=== PATIENT | male | born 1960 | race Caucasian/White ===

== ENCOUNTER 2017-04-14 10:23 | Emergency (ER) | payer BC ==
--- NOTE | ~2017-04-14 | CR173 ---
[facility] A Service of [facility] & [facility] RADIOLOGY TEXT RESULTS PATIENT: MAVERICK LARSON LOCATION: [facility] : 64 UNIT #: [id number] AGE: [address]: Stephani Palacios SEX: M ORDER DR: [id number] [facility] [address] [place], [place] [address] [id number] MR#: [id number] Acc #: [id number] NAME: MAVERICK LARSON : 1960 SEX: M STUDY DATE/TIME: 04/14/2017 11:22 UNIT: [facility] ROOM: STUDY DESCRIPTION: CR Knee 3 Views Rt Attending Physician: Stephani Palacios Pa-C Referring Physician: Self Referral-Refer Use Only Ordering Physician: Ed Peter Sarabia M.D. Primary Care Physician: Macho White M.D. MEDICAL IMAGING REPORT This report is preliminary unless electronic signature is present EXAM Right knee series, 04/14/17. HISTORY Pain. Walking and felt a pop and sharp pain. Three days duration. Pain, swelling. Two tears in meniscus 9 years ago. FINDINGS AP, lateral and sunrise views of the right knee are presented. No fracture or traumatic malalignment. There is moderate narrowing of the medial joint space compartment and patellofemoral joint space compartment. Moderate joint effusion in the suprapatellar recess. No soft tissue defect, subcutaneous air or radiodense foreign body. If it would assist in patient management, the knee could be further evaluated with elective MRI if patient is candidate. Dictated by... Jack Dudley M.D. THIS IS AN ELECTRONICALLY VERIFIED REPORT Jack Dudley M.D. at 04/15/2017 5:16 PM DEEPAK/dora TD: 04/14/2017 13:35 JOB #: [id number] MEDICAL IMAGING REPORT Page 1 of 1 COPY
== END 2017-04-14 12:05 | disposition home or self-care (01) ==
LOC: CED 10:23 → CFTX 10:23 → CED 11:43 → CFTX 11:43 → CED 12:05
DX: S83.91XA Sprain of unspecified site of right knee, initial encounter (principal); X58.XXXA Exposure to other specified factors, initial encounter; Y93.01 Activity, walking, marching and hiking; Y92.009 Unspecified place in unspecified non-institutional (private) residence as the place of occurrence of the external cause; I10 Essential (primary) hypertension; F17.200 Nicotine dependence, unspecified, uncomplicated
CPT/HCPCS: 29530; 73562; 99283

== ENCOUNTER → 2017-04-21 | Outpatient (CLI) | payer OTHER ==
[~2017-04-21] MED LIST: ASPIRIN81 MG PO; LIPITOR20 MG PO; VALSARTAN-HCTZ1 EAC3 PO
--- NOTE | ~2017-04-21 | MR104 ---
[facility] A Service of [facility] & [facility] RADIOLOGY TEXT RESULTS PATIENT: MAVERICK LARSON LOCATION: [facility] : 64 UNIT #: [id number] AGE: [address]: Justyna Mckeon SEX: M ORDER DR: [id number] [address] [address] [id number] O MR#: [id number] Acc #: [id number] NAME: MAVERICK LARSON : 1960 SEX: M STUDY DATE/TIME: 04/21/2017 10:02 UNIT: [facility] ROOM: STUDY DESCRIPTION: MR Knee Wo Contrast Rt Attending Physician: Justyna Mckeon P.A.-C. Referring Physician: Justyna Mckeon P.A.-C. Ordering Physician: Justyna Mckeon P.A.-C. Primary Care Physician: Macho White M.D. MRI CENTER REPORT This report is preliminary unless electronic signature is present. EXAM MRI of the right knee 04/21/17. COMPARISON Right knee radiograph 04/14/17 and MRI of the right knee 10/06/08. HISTORY Order states right knee swelling, right knee pain. History sheet states was walking on 04/11/17 and felt a pop with sharp pain. Pain and swelling for 10 days. Arthroscopy 2007. The operative report is not available for correlation. FINDINGS There is a moderate joint effusion with subtle synovial thickening compatible with synovitis. There has been development of a large popliteal cyst measuring 7.6 cm craniocaudal x 3.0 cm transverse. Patellofemoral alignment is normal. There is progressive chondromalacia of the medial patellar facet with grade 4 chondromalacia present peripherally. The femoral trochlea demonstrates minimal low grade chondromalacia. Quadriceps and patellar tendons are intact. The cruciate ligaments are intact. The lateral meniscus, lateral collateral ligament complex, and popliteus tendon are intact. The articular cartilage of the lateral compartment is normal. There has been development of significant osteoarthritis of the medial compartment. Joint space narrowing, minimal marginal osteophyte formation, and fairly extensive grade 4 chondromalacia of the weightbearing medial compartment has developed. There is minimal underlying reactive marrow edema. There is a longitudinal oblique STS. [facility] A Service of [facility] & [facility] RADIOLOGY TEXT RESULTS PATIENT: MAVERICK LARSON LOCATION: [facility] : 64 UNIT #: [id number] AGE: [address]: Justyna Mckeon SEX: M ORDER DR: undersurface tear in the posterior body and horn of the medial meniscus which demonstrates free margin blunting. The tear could be superimposed on changes of partial medial meniscectomy. The MCL is intact. There is a sizable calcified loose body along the anterior central joint line measuring 15 x 11 mm. There is a 2-3 mm loose body posterior to the lateral femoral condyle. There is no marrow lesion or fracture. Several additional smaller loose bodies are noted. IMPRESSION 1. Since the prior study of 10/06/08, there has been significant development of osteoarthritis of the medial compartment. 2. Longitudinal oblique undersurface tear posterior body and horn of the medial meniscus potentially superimposed on partial medial meniscectomy. Correlate with any available operative reports. 3. Moderate effusion and sizable popliteal cyst with evidence of synovitis and debris/loose bodies detailed above. 4. 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 5. Cruciate ligaments and lateral compartment are within normal limits. Dictated by... Merced Montano M.D. THIS IS AN ELECTRONICALLY VERIFIED REPORT Merced Montano M.D. at 04/23/2017 9:02 AM RICHARD/dora TD: 04/22/2017 13:42 JOB #: [id number] MRI CENTER REPORT Page 1 of 1
== END | disposition home or self-care (01) ==
LOC: SMRI 09:44
DX: S83.241A Other tear of medial meniscus, current injury, right knee, initial encounter (principal); M71.21 Synovial cyst of popliteal space [Baker], right knee; M22.41 Chondromalacia patellae, right knee; M65.9 Synovitis and tenosynovitis, unspecified; M25.461 Effusion, right knee; M17.11 Unilateral primary osteoarthritis, right knee
CPT/HCPCS: 73721

== ENCOUNTER 2017-07-07 23:14 | Observation (INO) | payer BC ==
[~2017-07-07] VITALS: Ht 190.5 cm; Wt 104.3 kg
--- NOTE | ~2017-07-07 | CT71 ---
[facility] A Service of [facility] RADIOLOGY TEXT RESULTS PATIENT: ADONIS LARSON LOCATION: [facility] 57 : 64 UNIT #: [id number] AGE: [address]: Oscar Biswas MD SEX: M ORDER DR: [id number] [place], [place] [address] [id number] MR#: [id number] Acc #: [id number] NAME: ADONIS LARSON : 1960 SEX: M STUDY DATE/TIME: 07/08/2017 2:11 UNIT: [facility] ROOM: [facility] STUDY DESCRIPTION: CT Head Wo Contrast Attending Physician: Oscar Biswas M.D. Ordering Physician: Adonsi Alvarez Aprn Primary Care Physician: Macho White M.D. MEDICAL IMAGING REPORT This report is preliminary unless electronic signature is present EXAM CT head without contrast. INDICATIONS Left arm numbness, shortness of air, and weakness today. Headache today. PROCEDURE Unenhanced CT head. This CT exam was performed with one or more of the following radiation dose reduction techniques: automatic exposure control, adjustment of mA and/or kV according to patient size, and iterative reconstruction. COMPARISON None. FINDINGS No acute hemorrhage, abnormal mass effect, extraaxial fluid collection or hydrocephalus. No evidence for acute or early subacute large territory infarct. No calvarial fracture. Paranasal sinuses and mastoid air cells are clear. IMPRESSION No acute findings. Dictated by... Andrews Mosley M.D. THIS IS AN ELECTRONICALLY VERIFIED REPORT Andrews Mosley M.D. at 07/10/2017 10:00 PM EED/melvin TD: 07/08/2017 07:09 JOB #: [id number] [facility] A Service of [facility] & [facility] RADIOLOGY TEXT RESULTS PATIENT: ADONIS LARSON LOCATION: [facility] 57 : 64 UNIT #: [id number] AGE: [address]: Oscar Biswas MD SEX: M ORDER DR: MEDICAL IMAGING REPORT Page 1 of 1 COPY
--- NOTE | ~2017-07-07 | DS ---
Unit #: [id number] #: [id number] Patient: MAVERICK LARSON [id number] [address] [place], [place] [address] [id number] I MR#: [id number] NAME: MAVERICK LARSON ROOM: 556 Age: 57 Sex: M Admission Date: 07/08/2017 : 1960 Discharge Date: 07/08/2017 Attending Physician: Oscar Biswas M.D. Primary Care Physician: Macho White M.D. DISCHARGE SUMMARY SHORT-STAY SUMMARY HISTORY OF PRESENT ILLNESS This is a 57-year-old male with a prior history of hypertension, hyperlipidemia and right knee arthroscopy about four to five weeks ago. He denies a prior history of coronary artery disease or diabetes mellitus. He presented to the ER with reports of left arm numbness and tingling as well as left-side chest tightness and pressure. States he was walking into work yesterday around 1:00 p.m. He became diaphoretic and weak with some numbness in his arms. As the day progressed he had some dyspnea on exertion, especially with one to two flights of stairs, and left arm numbness and tingling. On his way home from work yesterday he experienced left-sided chest pressure with no accompanying symptoms; denies nausea or shortness of air with it. The chest pressure lasted about 45 minutes and was resolving when he arrived in the ER. A CT of the head done in the ER was negative for any acute findings. A chest x-ray showed no active disease. His EKG showed normal sinus rhythm with inverted T wave in V1. His troponins were negative for ischemia. PAST MEDICAL HISTORY 1. Hypertension. 2. Hyperlipidemia. 3. Osteoarthritis. 4. Asthma as a child. PAST SURGICAL HISTORY Right knee arthroscopy. 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 He denies illicit drug use. He drinks about three to four beers per day. He smokes one-half to three-quarters pack of cigarettes per day off and on x30 years. FAMILY HISTORY His father had an LA in his early 60s. His mother had coronary artery disease in her 50s or 60s. ALLERGIES No known drug allergies. HOME MEDICATIONS 1. Atorvastatin 20 mg p.o. once a day. 2. Valsartan/hydrochlorothiazide 320 mg/25 mg one tab once a day. Unit #: [id number] #: [id number] Patient: MAVERICK LARSON REVIEW OF SYSTEMS A 10-point review of systems was conducted and is otherwise negative except for what was stated in the HPI. PHYSICAL EXAMINATION VITAL SIGNS: Temp 97.6, heart rate 61, respiratory rate 20, blood pressure of 144/84. GENERAL: This is an alert and oriented 57-year-old male sitting up at the side of the bed in no acute distress. HEENT: Head is atraumatic and normocephalic. Pupils are equal and reactive to light. Mucous membranes are moist. NECK: Is supple. Trachea is midline. No JVD. LUNGS: Clear, diminished in bases. Nonlabored respirations. CARDIOVASCULAR: S1 and S2. Regular rate and rhythm. No significant murmurs, rubs or gallops. ABDOMEN: Soft, nontender, nondistended. Positive bowel sounds. EXTREMITIES: Pulses are palpable. No pedal edema. No cyanosis. NEUROLOGIC: Alert and oriented x3. Follows all commands equally and moves his all extremities without difficulty. DIAGNOSTIC STUDIES LABORATORY RESULTS: Sodium 140, potassium 3.7, chloride 107, BUN 19, creatinine 1.2, glucose 96, hemoglobin 14, hematocrit 42.4, white blood cell count 7.1, platelets 195. Point of care troponin less than 0.05 and repeat troponin less than 0.03. Lipid profile: Cholesterol 117, triglycerides 114, LDL 53 and HDL 41. IMAGING STUDIES: Chest x-ray shows no active disease. CT of the head shows no acute findings. CARDIOVASCULAR STUDIES: EKG shows normal sinus rhythm with a ventricular rate of 60 and inverted T waves in lead V1. ASSESSMENT 1. Chest pain. 2. Hypertension. 3. Hyperlipidemia. 4. Tobacco abuse. PLAN His Cardiolite exercise stress test was done today and was negative for ischemia with an LVEF around 62%. His troponins and EKG were negative for ischemia. He has had no recurrence of chest discomfort or arm numbness or tingling. DISPOSITION He will be discharged home today. DISCHARGE INSTRUCTIONS 1. He is to follow up with his primary care doctor in three to four weeks. 2. His lipid profile results were reviewed with him and his low HDL was discussed with him. 3. He was encouraged to quit smoking. 4. He was instructed if he has further chest pain he needs to return to the hospital and may possibly need evaluation with a cardiac cath. He verbalized an understanding of this. Unit #: [id number] #: [id number] Patient: MAVERICK LARSON 5. He will be discharged home. DISCHARGE MEDICATIONS We will resume his home medications of: 1. Lipitor 20 mg once a day, and 2. Valsartan/hydrochlorothiazide 320/25 mg tablet once a day. 3. He was instructed to begin aspirin 81 mg p.o. once a day. Dictated by... Jaymie Connors APRN for Deangelo Andrade/lucy TD: 07/08/2017 19:40 JOB #: [id number] DISCHARGE SUMMARY Page 1 of 1 X X DISCHARGE SUMMARY
--- NOTE | ~2017-07-07 | TH ---
Unit #: [id number] #: [id number] Patient: MAVERICK LARSON [id number] [address] [address] [id number] I MR#: [id number] NAME: MAVERICK LARSON : 1960 SEX: M STUDY DATE/TIME: 07/08/2017 UNIT: C5B ROOM: 556 STUDY DESCRIPTION: Attending Physician: Oscar Biswas M.D. Primary Care Physician: Macho White M.D. CARDIOLOGY REPORT EXAM Exercise Cardiolite stress test, nuclear portion. PROCEDURE Using technetium 99m labeled Cardiolite, rest and stress SPECT images were obtained. Multiple SPECT images were obtained in various views including horizontal and vertical long axis and short axis views of the left ventricle. Images were obtained by gated SPECT method. The patient was administered 10.25 mCi of Cardiolite at rest. Patient was administered 33.4 mCi of Cardiolite at peak exercise on a modified Sang protocol. Total exercise time is 8 minutes and 47 seconds. On the stress images, there is normal perfusion noted. The rest images show mild decreased isotope activity in the inferoapical wall. Comparing rest and stress images, there is no stress-induced ischemia noted. The left ventricular ejection fraction is calculated to be 62%. There is no focal wall motion abnormality seen. CONCLUSION 1. No stress-induced ischemia noted. 2. The left ventricular ejection fraction is calculated to be 62%. 3. There is no focal wall motion abnormality seen. 4. Normal exercise Cardiolite stress test. Dictated by... Deangelo Andrade TD: 07/08/2017 12:45 JOB #: [id number] CARDIOLOGY REPORT Page 1 of 1 X Clarita Valles MD <ELECTRONICALLY SIGNED> 07/24/17 1524 CARDIOLOGY REPORT
--- NOTE | ~2017-07-07 | ST ---
Unit #: [id number] #: [id number] Patient: MAVERICK LARSON [id number] [address] [address] [id number] MR#: [id number] NAME: MAVERICK LARSON : 1960 SEX: M STUDY DATE/TIME: 07/08/2017 UNIT: C5B ROOM: 556 STUDY DESCRIPTION: Attending Physician: Oscar Biswas M.D. Primary Care Physician: Macho White M.D. CARDIOLOGY REPORT EXAM EKG portion of Cardiolite exercise stress test. REASON FOR EXAM Chest pressure with left arm numbness and tingling. FINDINGS Baseline EKG is sinus rhythm with a ventricular rate of 63. PROCEDURE The patient exercised on the treadmill according to the Sang protocol for 8 minutes and 47 seconds, achieving a work level of 9.6 METs. Resting heart rate was 63. Maximal heart rate was 142 beats per minute representing 86% of maximal age predicted heart rate. The patient's symptoms were right knee pain and difficulty walking. No arrhythmias or ischemic ST changes were noted. The test was stopped due to achieving heart rate. IMPRESSION 1. This is a negative test. 2. There were no ischemic ST segment changes. 3. The patient experienced some difficulty walking and protocol was modified. 4. There were no arrhythmias. 5. Please correlate with Cardiolite imaging. Dictated by... Jaymie Connors APRN for Deangelo Kaufman TD: 07/08/2017 10:25 JOB #: [id number] Unit #: [id number] #: [id number] Patient: MAVERICK LARSON CARDIOLOGY REPORT Page 1 of 1 X CARDIOLOGY REPORT
--- NOTE | ~2017-07-07 | CR72 ---
[facility] A Service of [facility] & [facility] RADIOLOGY TEXT RESULTS PATIENT: ADONIS LARSON LOCATION: [facility] 556-01 : 64 UNIT #: [id number] AGE: [address]: Oscar Biswas MD SEX: M ORDER DR: [id number] [facility] [address] [facility] [place], [place] [address] [id number] E MR#: [id number] Acc #: [id number] NAME: ADONIS LARSON : 1960 SEX: M STUDY DATE/TIME: 07/07/2017 23:51 UNIT: [facility] ROOM: STUDY DESCRIPTION: CR Chest Single View Portable Attending Physician: Adonis Alvarez Aprn Ordering Physician: Henrik Zepeda M.D. Primary Care Physician: Macho White M.D. MEDICAL IMAGING REPORT This report is preliminary unless electronic signature is present EXAM Portable chest. INDICATIONS Weakness and shortness of air tonight. PROCEDURE Frontal view of the chest. COMPARISON None FINDINGS Heart size upper limits of normal. No dense consolidation, visible pleural fluid, or pneumothorax. IMPRESSION No active process. Dictated by... Andrews Mosley M.D. THIS IS AN ELECTRONICALLY VERIFIED REPORT Andrews Mosley M.D. at 07/10/2017 9:59 PM MINOR/robbie TD: 07/08/2017 04:12 JOB #: [id number] MEDICAL IMAGING REPORT Page 1 of 1 COPY
--- NOTE | ~2017-07-07 | EKG ---
PATIENT: MAVERICK LARSON UNIT #: [id number] Ventricular Rate: 86 BPM Atrial Rate: 86 BPM P-R Interval: 164 ms QRS Duration: 86 ms Q-T Interval: 360 ms QTC Calculation(Bezet): 430 ms P [place]: 53 degrees Calculated R [place]: 26 degrees Calculated T [place]: 32 degrees Diagnosis Line: Normal sinus rhythm Diagnosis Line: Normal ECG Diagnosis Line: No previous ECGs available Diagnosis Line: Confirmed by BERT BEE MD ([id number]) on Diagnosis Line: 07/11/2017 10:45:43 AM INTERPRETING MD: ROHIT CURRAN
--- NOTE | ~2017-07-07 | EKG ---
PATIENT: MAVERICK LARSON UNIT #: [id number] Ventricular Rate: 63 BPM Atrial Rate: 63 BPM P-R Interval: 176 ms QRS Duration: 84 ms Q-T Interval: 418 ms QTC Calculation(Bezet): [address]: 57 degrees Calculated R [address]: 52 degrees Calculated T [address]: 51 degrees Diagnosis Line: Normal sinus rhythm Diagnosis Line: Normal ECG Diagnosis Line: When compared with ECG of 07-JUL-2017 23:19, Diagnosis Line: (unconfirmed) Diagnosis Line: No significant change was found Diagnosis Line: Confirmed by BERT BEE MD ([id number]) on Diagnosis Line: 07/11/2017 10:46:09 AM INTERPRETING MD: ROHIT CURRAN
[2017-07-08 01:04] LABS: BASOPHIL# 0.1 X10e3 (0-0.3); BASOPHIL% 1.1 % (0-2.5); DIFF IND NO; EOSINOPHIL# 0.3 X10e3 (0-0.7); EOSINOPHIL% 4.4 % (0.0-7.0); HEMATOCRIT 42.4 % (38.0-50.0); LYMPHOCYTE# 2.4 X10e3 (1.0-3.5); LYMPHOCYTE% 33.7 % (17.0-45.0); MEAN CELL VOLUME 90.8 FL (83-96); MEAN CORPUSCULAR HEMOGLOBIN 29.9 PG (28-34); MEAN CORPUSCULAR HGB CONC 32.9 g/dL (30-36); MEAN PLATELET VOLUME 8.4 FL (6.5-11.5); MONOCYTE# 0.5 X10e3 (0-1.0); MONOCYTE% 6.6 % (3.0-12.0); NEUTROPHIL# 3.8 X10e3 (1.5-7.1); NEUTROPHIL% 54.2 % (40-75); PLATELET COUNT 195 X10e3 (140-420); RED BLOOD COUNT 4.67 X10e (3.90-5.60); RED CELL DISTRIBUTION WIDTH 14.1 % (11.0-15.5); WHITE BLOOD COUNT 7.1 X10e3 (4.0-10.5)
[2017-07-08 01:11] LABS: POC - CKMB 1.4 ng/mL (0.0-7.9); POC - TROPONIN <0.05 ng/mL (<=0.05)
[2017-07-08 01:15] LABS: PARTIAL THROMBOPLASTIN TIME 27.8 SECONDS (23.5-31.3); PROTHROMBIN TIME (PATIENT) 11.2 SECONDS (10.0-11.7)
[2017-07-08 01:30] LABS: ALBUMIN SERUM 4.8 g/dL (3.5-5.0); BILIRUBIN, DIRECT 0.2 mg/dL (0.0-0.2); BILIRUBIN,INDIRECT 1.2 mg/dL (0.0-0.9); BILIRUBIN,TOTAL 1.4 mg/dL (0.2-2.0); BUN/CREATININE RATIO 15.83; CALCIUM SERUM 9.4 mg/dL (8.4-10.2); CREATININE SERUM 1.2 mg/dL (0.6-1.4); GLOM FILT RATE Estimated 67.7 mL/min (>60); POTASSIUM 3.7 mmol/L (3.5-5.1); PROTEIN TOTAL SERUM 7.3 g/dL (6.0-8.3)
[2017-07-08 02:57] LABS: POC - CKMB <1.0 ng/mL (0.0-7.9); POC - TROPONIN <0.05 ng/mL (<=0.05)
[2017-07-08] MEDS ORDERED: VALSARTAN-HCTZ1 EAC3 PO (03:16)
[2017-07-08] MEDS ORDERED: LIPITOR20 MG PO (03:16)
[2017-07-08 08:38] LABS: CHOLESTEROL 117 mg/dL (0-200); HDL CHOLESTEROL 41 mg/dL (29-75); LDL CHOLESTEROL 53 mg/dL (-130); LDL/HDL RATIO 1 RATIO (0-4); TRIGLYCERIDES 114 mg/dL (10-160)
[2017-07-08] MEDS ORDERED: ASPIRIN81 MG PO (15:31)
== END 2017-07-08 18:59 | disposition home or self-care (01) | DRG 313 ==
LOC: CED 23:14 → CEDOF 07-08 03:31 → C5B 07-08 03:31
PROVIDERS: Emergency Medicine; Nurse Practitioner Family
DX: R07.9 Chest pain, unspecified (principal); E78.5 Hyperlipidemia, unspecified; F17.210 Nicotine dependence, cigarettes, uncomplicated; M19.90 Unspecified osteoarthritis, unspecified site; Z82.49 Family history of ischemic heart disease and other diseases of the circulatory system; Z79.899 Other long term (current) drug therapy; Z98.890 Other specified postprocedural states
CPT/HCPCS: 36415; 70450; 71010; 78452; 80048; 80061; 80076; 82553; 84484; 85025; 85610; 85730; 93005; 93017; 93306; 99285; A9500; G0378